=== PATIENT | male | born 1995 | race Caucasian/White ===

== ENCOUNTER 2020-09-25 11:37 | Emergency (ER) | payer OTHER ==
[~2020-09-25] VITALS: Ht 165.1 cm; Wt 75.0 kg
[2020-09-25 11:39] VITALS: BP 137/97
== END 2020-09-25 12:35 | disposition home or self-care (01) ==
LOC: EMS 11:37
DX: U07.1 COVID-19 (principal)
CPT/HCPCS: 99283; U0003